=== PATIENT | female | born 1980 | race Asian ===

== ENCOUNTER 2016-10-16 10:16 | Emergency (ER) | payer OTHER ==
[~2016-10-16] VITALS: Ht 157.5 cm; Wt 84.1 kg
[2016-10-16 11:16] LABS: CALCIUM 8.8 mg/dL (8.5-10.1); CARBON DIOXIDE 30.5 mmol/L (21-32); CHLORIDE SERUM 104 mmol/L (98-107); GFR1 > 60 mL/min; GLUCOSE SERUM 86 mg/dL (74-106); POTASSIUM SERUM 4.3 mmol/L (3.5-5.1); SODIUM SERUM 140 mmol/L (136-145)
[2016-10-16 12:12] VITALS: BP 135/78
== END 2016-10-16 12:10 | disposition home or self-care (01) ==
LOC: ED 10:16
PROVIDERS: Emergency Medicine
DX: G43.909 Migraine, unspecified, not intractable, without status migrainosus (principal); R03.0 Elevated blood-pressure reading, without diagnosis of hypertension
CPT/HCPCS: 36415; J1885; Q0162